=== PATIENT | male | born 1955 | race Caucasian/White ===

== ENCOUNTER 2020-11-07 19:26 | Observation (INO) ==
[2020-11-07] MEDS ORDERED: Isovue-370 500 ML BOTTLE IVP ONE (19:52)
[2020-11-07 20:03] LABS: Basophils # 0.1 K/mcL (0.0-0.2); Basophils % 0.5 %; Eosinophils # 0.5 K/mcL (0.0-0.6); Eosinophils % 3.6 %; Hematocrit 42.9 % (37.5-50.1); Hemoglobin 13.6 g/dL (12.9-16.9); Immature Granulocytes % 1.1 % (0-4); Lymphocytes # 3.7 K/mcL (0.6-4.6); Lymphocytes % 24.9 %; Mean Corpuscular HGB Conc 31.7 g/dL (31.6-35.5); Mean Corpuscular Hemoglobin 25.4 pg (28.0-33.3); Mean Platelet Volume 9.6 fL (9.4-12.4); Monocytes # 1.6 K/mcL (0.0-1.3); Monocytes % 10.7 %; Neutrophils # 8.8 K/mcL (1.6-8.9); Platelet Count 477 K/mcL (140-400); Red Blood Count 5.36 M/mcL (4.19-5.50); Red Cell Distribution Width 15.3 % (11.5-14.5); Segmented Neutrophils % 59.2 %; White Blood Count 14.9 K/mcL (4.3-11.1)
[2020-11-07 20:09] LABS: INR 1.1; Prothrombin Time 12.6 Seconds (9.4-12.1)
[2020-11-07 20:12] LABS: Activated Partial Thrombo Time 28.2 Seconds (26.0-36.0)
[2020-11-07 20:26] LABS: Alanine Aminotransferase 29 Units/L (7-52); Albumin 4.5 g/dL (3.5-5.7); Albumin/Globulin Ratio 1.4 (1.1-2.2); Alkaline Phosphatase 114 Units/L (34-104); Aspartate Amino Transferase 29 Units/L (13-39); BUN/Creatinine Ratio 21 (6-26); Bilirubin,Direct 0.1 mg/dL (0.0-0.2); Bilirubin,Indirect 0.2 mg/dL (0.0-1.0); Bilirubin,Total 0.3 mg/dL (0.3-1.0); Blood Urea Nitrogen 18 mg/dL (8-23); Calcium 9.9 mg/dL (8.6-10.3); Carbon Dioxide 22 mEq/L (23-29); Chloride 108 mEq/L (98-107); Globulin 3.2 g/dL (2.4-3.5); Glucose 70 mg/dL (70-105); Osmolality,Calculated 288 (280-300); Sodium 139 mEq/L (136-145); Total Protein 7.7 g/dL (6.4-8.9); Troponin I < 0.03 ng/mL (< 0.04); eGFR For African Americans > 60 (> 60); eGFR For Non-African Americans > 60 (> 60)
[2020-11-07 22:09] LABS: Bilirubin,Urine Negative (Negative); Blood,Urine Negative (Negative); Clarity,Urine Clear (Clear); Color,Urine Yellow (Yellow); Glucose,Urine (UA) Normal (Normal); Ketones,Urine Negative (Negative); Leukocyte Esterase,Urine Negative (Negative); Nitrite,Urine Negative (Negative); Protein,Urine Trace mg/dL (Neg-Trace); Specific Gravity,Urine > 1.030 (1.010-1.025); Urobilinogen,Urine Normal (Normal)
[2020-11-07] MEDS ORDERED: Perflutren Lipid Microsphere 1.3 ML in 0.9 % Sodium Chloride 8.7 ML IVP PRN (22:40)
[2020-11-08 01:14] LABS: Alanine Aminotransferase 26 Units/L (7-52); Albumin 4.1 g/dL (3.5-5.7); Albumin/Globulin Ratio 1.4 (1.1-2.2); Alkaline Phosphatase 101 Units/L (34-104); Aspartate Amino Transferase 25 Units/L (13-39); BUN/Creatinine Ratio 23 (6-26); Bilirubin,Total 0.3 mg/dL (0.3-1.0); Blood Urea Nitrogen 18 mg/dL (8-23); Calcium 9.8 mg/dL (8.6-10.3); Carbon Dioxide 22 mEq/L (23-29); Chloride 109 mEq/L (98-107); Chol/HDL Ratio 4.3 (0-4.9); Cholesterol 130 mg/dL (< 200); Globulin 2.9 g/dL (2.4-3.5); Glucose 96 mg/dL (70-105); HDL Cholesterol 30 mg/dL (40-59); LDL Cholesterol,Calculated 72 mg/dL (< 100); Osmolality,Calculated 288 (280-300); Potassium 4.1 mEq/L (3.5-5.1); Sodium 138 mEq/L (136-145); Triglycerides 141 mg/dL (< 150); eGFR For African Americans > 60 (> 60); eGFR For Non-African Americans > 60 (> 60)
[2020-11-08] MEDS ORDERED: *HR* Heparin 5,000 UNIT/ML VIAL SQ SCH (06:00)
[2020-11-08] MEDS ORDERED: Naloxone 0.4 MG/ML INJ IVP PRN (08:54)
[2020-11-08] MEDS ORDERED: Acetaminophen 325 MG TABLET PO PRN (08:54)
[2020-11-08] MEDS ORDERED: atenoloL 25 MG TABLET PO SCH (09:00)
[2020-11-08] MEDS ORDERED: Aspirin 325 MG TABLET PO SCH (09:00)
[2020-11-08 15:28] VITALS: BP 108/69
== END 2020-11-08 17:43 | disposition home or self-care (01) ==
LOC: 3NENU 19:26 → EMEROOARM 19:26 → SUATTDRO 22:19 → 3NENU 23:55
PROVIDERS: ADMIT Internal Medicine; ATTEND Internal Medicine

== ENCOUNTER 2021-01-14 06:13 | Inpatient (IN) ==
[2021-01-14] MEDS ORDERED: 0.9 % Sodium Chloride 1,000 ML ONE ×2 (07:05→07:42)
[2021-01-14] MEDS ORDERED: *HR* FentaNYL (PF) 100 MCG/2 ML VIAL ONE (07:30)
[2021-01-14] MEDS ORDERED: Protamine Sulfate 50 MG/5 ML VIAL IVP ONE ×2 (07:36→09:20)
[2021-01-14] MEDS ORDERED: *HR* Heparin 10,000 UNIT/10 ML VIAL ONE ×2 (07:36→07:46)
[2021-01-14] MEDS ORDERED: Heparin 1,000 UNITS/500 mL 500 ML ONE (07:37)
[2021-01-14] MEDS ORDERED: Heparin 1,000 UNITS/500 mL 1,500 ML ONE (07:41)
[2021-01-14] MEDS ORDERED: ISOVUE-370 200 ML INFUS..BTL ONE (07:45)
[2021-01-14] MEDS ORDERED: *HR* Acetaminophen w/Cod 300-30 mg 1 TAB TABLET PO PRN (10:26)
[2021-01-14] MEDS ORDERED: Perflutren Lipid Microsphere 1.3 ML in 0.9 % Sodium Chloride 8.7 ML IVP PRN (10:26)
[2021-01-14] MEDS ORDERED: Ibuprofen 600 MG TABLET PO PRN (10:26)
[2021-01-14] MEDS ORDERED: *HR* Phenylephrine 10 MG/ML VIAL IVC ONE (12:31)
[2021-01-14] MEDS ORDERED: Lidocaine -MPF 2% 5 ML VIAL SQ ONE (12:31)
[2021-01-14] MEDS ORDERED: Ondansetron 4 MG/2 ML VIAL IVP ONE (12:31)
[2021-01-14] MEDS ORDERED: *HR* Propofol 200 MG/20 ML VIAL IVP ONE (12:31)
[2021-01-14] MEDS ORDERED: *HR* Rocuronium Bromide 50 MG/5 ML VIAL IVP ONE (12:31)
[2021-01-14] MEDS ORDERED: *HR* Succinylcholine 200 MG/10 ML VIAL IVP ONE (12:31)
[2021-01-14] MEDS: atenoloL 25 MG TABLET PO SCH (13:30)
[2021-01-14] MEDS: *HR* Rivaroxaban 10 MG TABLET PO SCH (17:05)
[2021-01-15 02:12] LABS: Basophils % 0.1 %; Hematocrit 36.9 % (37.5-50.1); Hemoglobin 11.8 g/dL (12.9-16.9); Immature Granulocytes % 0.5 % (0-4); Lymphocytes # 1.6 K/mcL (0.6-4.6); Lymphocytes % 7.3 %; Mean Corpuscular Hemoglobin 25.1 pg (28.0-33.3); Mean Corpuscular Volume 78.3 fL (83.0-100.0); Mean Platelet Volume 9.2 fL (9.4-12.4); Platelet Count 440 K/mcL (140-400); Red Blood Count 4.71 M/mcL (4.19-5.50); Red Cell Distribution Width 15.9 % (11.5-14.5); Segmented Neutrophils % 83.1 %; White Blood Count 22.1 K/mcL (4.3-11.1)
[2021-01-15 02:16] LABS: Neutrophils # 18.4 K/mcL (1.6-8.9)
[2021-01-15 02:20] LABS: INR 2.3; Prothrombin Time 25.5 Seconds (9.4-12.1)
[2021-01-15 02:34] LABS: BUN/Creatinine Ratio 17 (6-26); Blood Urea Nitrogen 12 mg/dL (8-23); Calcium 10.1 mg/dL (8.6-10.3); Carbon Dioxide 21 mEq/L (23-29); Chloride 104 mEq/L (98-107); Glucose 131 mg/dL (70-105); Osmolality,Calculated 280 (280-300); Potassium 4.6 mEq/L (3.5-5.1); Sodium 134 mEq/L (136-145); eGFR For African Americans > 60 (> 60); eGFR For Non-African Americans > 60 (> 60)
[2021-01-15] MEDS: Ringers Solution, Lactated 1,000 ML IVC SCH ×2 (07:14→10:36)
[2021-01-15] MEDS ORDERED: allopurinoL 300 MG TABLET PO SCH (09:00)
[2021-01-15] MEDS ORDERED: Aspirin Enteric Coated 81 MG Tablet PO SCH (09:00)
[2021-01-15] MEDS: atenoloL 25 MG TABLET PO SCH (09:04)
[2021-01-15 11:05] VITALS: TEMP 98.2
[2021-01-15 16:13] VITALS: BP 110/65; PULSE 62; O2SAT 97
[2021-01-15] MEDS: *HR* Rivaroxaban 10 MG TABLET PO SCH (16:25)
== END 2021-01-15 16:53 | disposition home or self-care (01) | DRG 274 ==
LOC: INVDIALAB 06:13 → 2NNU 11:34
PROVIDERS: ADMIT Internal Medicine Cardiovascular Disease; ATTEND Internal Medicine Cardiovascular Disease